=== PATIENT | male | born 1970 | race Caucasian/White ===

== ENCOUNTER 2018-02-10 16:14 | Outpatient (CLI) | payer OTHER ==
[~2018-02-10 16:14] MED LIST: ALBU8.5H8 INH; BACL10TA PO; CHOL2000 PO; CLON0.5T12 PO; DEXL60CA4 PO; DIAZ10TA4 PO; DULO60CA41 PO; ELVI1TAB PO; EPIN5DRO10 OP; EZET10TA PO; FLUT16SP16 NS; GLIP-204 PO; INSU100V9 SUBCUT; INSU200I SQ; IPRA3AMP9 INH; LIPA1CAP23 PO; LOP600 PO; LORA10TA7 PO; MOB7.5 PO; MONT10TA25 PO; NEU300 PO; NYSCR30 TP; OMEG1CAP55 PO; OMEP40CA33 PO; PANT20TA3 PO; PHEL5 PO; ROBDM PO; ROSU40TA PO; SUCR1TAB78 PO; TRAM50TA92 PO
== END 2018-02-10 20:52 | disposition home or self-care (01) ==
LOC: SRD 16:14
PROVIDERS: ATTEND Internal Medicine
DX: J18.9 Pneumonia, unspecified organism (principal); R05 Cough; Z88.1 Allergy status to other antibiotic agents; Z88.8 Allergy status to other drugs, medicaments and biological substances
CPT/HCPCS: 71045

== ENCOUNTER 2019-08-13 04:56 | Inpatient (IN) | payer OTHER ==
[~2019-08-13] VITALS: Ht 160 cm; Wt 76.7 kg
[2019-08-13 05:05] VITALS: BP_SYST 110
[2019-08-13] MEDS ORDERED: NITROGLYCERIN LINGUAL 400 mCg/SPRAY SL STA (05:18)
[2019-08-13] MEDS ORDERED: ASPIRIN 81 MG TAB.CHEW PO ONE (05:30)
[2019-08-13] MEDS ORDERED: NITROGLYCERIN LINGUAL 400 mCg/SPRAY ONE (05:58)
[2019-08-13] MEDS ORDERED: ASPI-1153 PO (06:15)
[2019-08-13] MEDS ORDERED: BENZ-16 PO (06:16)
[2019-08-13] MEDS ORDERED: GLIP10TA21 PO (06:18)
[2019-08-13] MEDS ORDERED: ROSU20TA2 PO (06:20)
[2019-08-13] MEDS ORDERED: SUCR1TAB78 PO (06:21)
[2019-08-13] MEDS ORDERED: ELVI1TAB PO (06:21)
[2019-08-13] MEDS ORDERED: SULF1TAB48 PO (06:23)
[2019-08-13] MEDS ORDERED: ICOS1CAP PO (06:24)
[2019-08-13] MEDS ORDERED: BUDE6.9H INH (06:24)
[2019-08-13] MEDS ORDERED: HYDR-4274 PO (06:26)
[2019-08-13] MEDS ORDERED: MORP30TA PO (06:27)
[2019-08-13] MEDS ORDERED: TIZA4TAB11 PO (06:28)
[2019-08-13] MEDS ORDERED: NITROGLYCERIN 1 INCH (GM) OINT. TP ONE (06:30)
[2019-08-13] MEDS ORDERED: SSNOVOLOG SUBCUT (06:30)
[2019-08-13] MEDS ORDERED: INSU300I3 SQ (06:31)
[2019-08-13] MEDS ORDERED: AZEL6DRO5 EACH EYE (06:32)
[2019-08-13] MEDS ORDERED: FLUT50BL IH (06:33)
[2019-08-13 06:34] LABS: BASOPHILS # (AUTO) 0.1 K/uL (0.0-0.2); BASOPHILS % (AUTO) 0.8 % (0.0-2.0); EOSINOPHILS # (AUTO) 0.2 K/uL (0.0-0.4); HEMATOCRIT 43.4 % (36-54); LYMPHOCYTES # (AUTO) 1.3 K/uL (1.0-5.5); LYMPHOCYTES % (AUTO) 15.9 % (20.5-51.5); MEAN CORPUSCULAR HEMOGLOBIN 33 pg (27-31); MEAN CORPUSCULAR HGB CONC 35 % (32-36); MEAN CORPUSCULAR VOLUME 94 fL (79.0-98.0); MONOCYTES # (AUTO) 0.6 K/uL (0.0-1.0); MONOCYTES % (AUTO) 7.4 % (1.7-9.3); NEUTROPHILS # (AUTO) 5.9 K/uL (1.8-7.7); NEUTROPHILS % (AUTO) 72.9 % (40.0-70.0); PLATELET COUNT (AUTO) 343 K/uL (130-430); RED CELL DISTRIBUTION WIDTH 12.3 % (9.0-15.0); WHITE BLOOD COUNT (AUTO) 8.1 K/uL (4.8-10.8)
[2019-08-13] MEDS ORDERED: HYDR-500 PO (06:34)
[2019-08-13] MEDS ORDERED: IBUP-1970 PO (06:35)
[2019-08-13] MEDS ORDERED: ALBU8.5H8 INH (06:37)
[2019-08-13] MEDS ORDERED: ASCO500T20 PO (06:38)
[2019-08-13] MEDS ORDERED: MELA3CAP2 PO (06:39)
[2019-08-13 06:40] LABS: CALCIUM 9.1 mg/dL (8.4-11.0); CREATININE 0.98 mg/dL (0.55-1.30); POTASSIUM 3.3 mmol/L (3.5-5.1)
[2019-08-13] MEDS ORDERED: MV-M1TAB19 PO (06:44)
[2019-08-13 06:45] LABS: TOTAL BILIRUBIN 0.6 mg/dL (0.0-1.0)
[2019-08-13 06:46] LABS: PROTHROMBIN TIME 9.9 SECS (9.5-12.5)
[2019-08-13] MEDS ORDERED: MAGN250T27 PO (06:47)
[2019-08-13] MEDS ORDERED: AMOX-423 PO (06:52)
[2019-08-13] MEDS ORDERED: DIF100 PO (06:53)
[2019-08-13] MEDS ORDERED: GLU500 PO (06:54)
[2019-08-13] MEDS ORDERED: METO25TA6 PO (06:54)
[2019-08-13] MEDS ORDERED: HYDR28.316 TP (06:56)
[2019-08-13] MEDS ORDERED: CYAN-25 PO (06:58)
[2019-08-13] MEDS ORDERED: POTASSIUM CHLORIDE 20 MEQ TAB.PRT.SR PO ONE ×2 (07:15→13:15)
[2019-08-13] MEDS ORDERED: AMOXICILLIN/CLAVULANATE POTASSIUM 500 MG TABLET PO ONE (10:30)
[2019-08-13] MEDS ORDERED: NAPHAZOLINE HCL/PHENIRAMINE 15 ML OPHT. DROPS OP PRN (10:30)
[2019-08-13] MEDS ORDERED: IBUPROFEN 800 MG TABLET PO PRN (10:30)
[2019-08-13] MEDS ORDERED: ASPIRIN 81 MG TABLET(ECOTRIN) PO ONE (10:30)
[2019-08-13] MEDS ORDERED: HYDROcodone/ACETAMIN 10-325 MG TAB PO PRN (10:30)
[2019-08-13] MEDS ORDERED: BACLOFEN 10 MG TABLET PO PRN ×2 (10:30→15:40)
[2019-08-13] MEDS ORDERED: IPRATROPIUM/ALBUTEROL SULFATE 3 ML AMPUL.NEB (DUONEB) INH PRN (10:30)
[2019-08-13 11:55] VITALS: BP_SYST 150
[2019-08-13] MEDS: INSULIN LISPRO SLIDING SCALE 100 UNITS/ML VIAL (humaLOG) SUBCUT PRN ×2 (12:07→17:24)
[2019-08-13] MEDS: MORPHINE SULFATE 30 MG Immediate Release TABLET PO SCH ×3 (12:21→21:44)
[2019-08-13 12:40] VITALS: BP_SYST 130
[2019-08-13] MEDS: SUCRALFATE 1 GM TABLET PO SCH ×2 (15:26→21:40)
[2019-08-13] MEDS: tiZANidine HCL 4 MG TABLET PO SCH ×2 (15:27→21:45)
[2019-08-13] MEDS: GABAPENTIN 300 MG CAPSULE PO SCH ×2 (15:27→21:45)
[2019-08-13] MEDS: clonazePAM 0.5 MG TABLET PO SCH ×2 (15:27→21:42)
[2019-08-13] MEDS: metFORMIN HCL 500 MG TABLET PO SCH ×2 (15:28→21:00)
[2019-08-13 16:00] VITALS: BP_SYST 158
[2019-08-13] MEDS: MELOXICAM 7.5 MG TABLET PO SCH (17:31)
[2019-08-13] MEDS: MELATONIN 3 MG TABLET PO SCH (17:32)
[2019-08-13 20:00] VITALS: BP_SYST 145
[2019-08-13] MEDS ORDERED: METOPROLOL TARTRATE 25 MG TABLET PO SCH (21:00)
[2019-08-13] MEDS: HYDROCORTISONE 2.5%, 30 GM TOPICAL CREAM TP SCH (21:00)
[2019-08-13] MEDS: AMOXICILLIN/CLAVULANATE POTASSIUM 500 MG TABLET PO SCH (21:40)
[2019-08-13] MEDS: OMEGA-3/DHA/EPA/FISH OIL 1 GM CAPSULE PO SCH (21:41)
[2019-08-13] MEDS: DULoxetine HCL 30 MG CAPSULE.DR (CYMBALTA) PO SCH (21:41)
[2019-08-13] MEDS: glipiZIDE XL 5 MG TAB ( GLUCOTROL XL) PO SCH (21:42)
[2019-08-13] MEDS: METOPROLOL TARTRATE 25 MG TABLET PO SCH (21:43)
[2019-08-13] MEDS: BENZONATATE 100 MG CAPSULE (TESSALON) PO SCH (21:45)
[2019-08-14] VITALS: BP_SYST 139
[2019-08-14 06:56] LABS: BASOPHILS # (AUTO) 0.1 K/uL (0.0-0.2); EOSINOPHILS # (AUTO) 0.2 K/uL (0.0-0.4); EOSINOPHILS % (AUTO) 3.6 % (0.0-4.0); HEMATOCRIT 46.7 % (36-54); HEMOGLOBIN 15.9 g/dL (14.0-18.0); LYMPHOCYTES # (AUTO) 1.4 K/uL (1.0-5.5); LYMPHOCYTES % (AUTO) 20.4 % (20.5-51.5); MEAN CORPUSCULAR HEMOGLOBIN 32 pg (27-31); MEAN CORPUSCULAR HGB CONC 34 % (32-36); MEAN CORPUSCULAR VOLUME 95 fL (79.0-98.0); MONOCYTES # (AUTO) 0.8 K/uL (0.0-1.0); MONOCYTES % (AUTO) 11.2 % (1.7-9.3); NEUTROPHILS # (AUTO) 4.4 K/uL (1.8-7.7); NEUTROPHILS % (AUTO) 63.8 % (40.0-70.0); PLATELET COUNT (AUTO) 329 K/uL (130-430); RED BLOOD CELL COUNT(AUTO) 4.92 MIL/uL (4.2-6.2); RED CELL DISTRIBUTION WIDTH 12.1 % (9.0-15.0)
[2019-08-14 07:33] LABS: ALBUMIN 3.6 g/dL (3.4-4.8); CALCIUM 9.3 mg/dL (8.4-11.0); CREATININE 1.26 mg/dL (0.55-1.30); POTASSIUM 3.4 mmol/L (3.5-5.1); THYROID STIMULATING HORMONE 2.04 uIu/mL (0.36-3.74); TOTAL BILIRUBIN 0.4 mg/dL (0.0-1.0)
[2019-08-14 07:57] VITALS: BP_SYST 140
[2019-08-14] MEDS: tiZANidine HCL 4 MG TABLET PO SCH ×3 (08:26→21:56)
[2019-08-14] MEDS: BENZONATATE 100 MG CAPSULE (TESSALON) PO SCH ×2 (08:26→21:56)
[2019-08-14] MEDS: MAGNESIUM OXIDE 400 MG TABLET PO SCH (08:26)
[2019-08-14] MEDS: METOPROLOL TARTRATE 25 MG TABLET PO SCH ×2 (08:26→21:55)
[2019-08-14] MEDS: LORATADINE 10 MG TABLET PO SCH (08:27)
[2019-08-14] MEDS: GABAPENTIN 300 MG CAPSULE PO SCH ×3 (08:27→21:56)
[2019-08-14] MEDS: PANTOPRAZOLE SODIUM 40 MG TAB PO SCH (08:28)
[2019-08-14] MEDS: clonazePAM 0.5 MG TABLET PO SCH ×3 (08:28→21:54)
[2019-08-14] MEDS: SUCRALFATE 1 GM TABLET PO SCH ×3 (08:28→21:53)
[2019-08-14] MEDS: metFORMIN HCL 500 MG TABLET PO SCH ×3 (08:29→21:54)
[2019-08-14] MEDS: CYANOCOBALAMIN 1000 mCg TABLET PO SCH (08:29)
[2019-08-14] MEDS: ASCORBIC ACID 500 MG TABLET PO SCH (08:30)
[2019-08-14] MEDS: MONTELUKAST 10 MG TABLET PO SCH (08:30)
[2019-08-14] MEDS: MORPHINE SULFATE 30 MG Immediate Release TABLET PO SCH ×5 (08:30→21:57)
[2019-08-14] MEDS: DULoxetine HCL 30 MG CAPSULE.DR (CYMBALTA) PO SCH ×2 (08:31→21:53)
[2019-08-14] MEDS: ATORVASTATIN 20 MG TABLET PO SCH (08:31)
[2019-08-14] MEDS ORDERED: [UNRECOGNIZED DRUG - OTHER] PO SCH (09:00)
[2019-08-14] MEDS ORDERED: HERBAL CMPLX PO SCH (09:00)
[2019-08-14] MEDS ORDERED: SULFAMETHOXAZOLE/TRIMETHOPR DS 1 TABLET PO SCH (09:00)
[2019-08-14] MEDS: OMEGA-3/DHA/EPA/FISH OIL 1 GM CAPSULE PO SCH ×2 (09:00→21:54)
[2019-08-14] MEDS ORDERED: IRON PO SCH (09:00)
[2019-08-14] MEDS ORDERED: INSULIN GLARGINE 100 UNITS/ML 10 ML VIAL SQ SCH ×3 (09:00→17:45)
[2019-08-14] MEDS ORDERED: FLUCONAZOLE 100 MG TABLET (DIFLUCAN) PO SCH (09:00)
[2019-08-14] MEDS ORDERED: MV MN PO SCH (09:00)
[2019-08-14] MEDS: HYDROCORTISONE 2.5%, 30 GM TOPICAL CREAM TP SCH ×2 (09:00→21:56)
[2019-08-14] MEDS: AMOXICILLIN/CLAVULANATE POTASSIUM 500 MG TABLET PO SCH ×2 (09:36→21:53)
[2019-08-14] MEDS: ASPIRIN 81 MG TABLET(ECOTRIN) PO SCH (09:37)
[2019-08-14] MEDS: GEMFIBROZIL 600 MG TABLET (LOPID) PO SCH (09:37)
[2019-08-14] MEDS: MELOXICAM 7.5 MG TABLET PO SCH ×2 (09:37→17:29)
[2019-08-14] MEDS: glipiZIDE XL 5 MG TAB ( GLUCOTROL XL) PO SCH ×2 (09:38→21:54)
[2019-08-14] MEDS: INSULIN LISPRO SLIDING SCALE 100 UNITS/ML VIAL (humaLOG) SUBCUT PRN ×3 (12:09→21:59)
[2019-08-14 12:22] VITALS: BP_SYST 127
[2019-08-14 16:54] VITALS: BP_SYST 142
[2019-08-14] MEDS: MELATONIN 3 MG TABLET PO SCH (17:29)
[2019-08-14 20:00] VITALS: BP_SYST 128
[2019-08-14] MEDS: ARIPiprazole 5 MG TAB PO SCH (21:53)
[2019-08-14] MEDS ORDERED: GABAPENTIN 300 MG CAPSULE ONE (21:58)
[2019-08-15 00:17] VITALS: BP_SYST 136
[2019-08-15] MEDS: INSULIN LISPRO SLIDING SCALE 100 UNITS/ML VIAL (humaLOG) SUBCUT PRN ×4 (06:02→20:28)
[2019-08-15 07:03] LABS: CHOLESTEROL 195 mg/dL (<200); HDL CHOLESTEROL 34 mg/dL (>45); LDL CHOLESTEROL 100 mg/dL (<100); TRIGLYCERIDES 455 mg/dL (30-150)
[2019-08-15] MEDS: HYDROCORTISONE 2.5%, 30 GM TOPICAL CREAM TP SCH ×2 (09:00→20:26)
[2019-08-15] MEDS: BUDESONIDE 0.5 MG/2 ML AMPUL.NEB INH SCH ×2 (09:00→20:16)
[2019-08-15] MEDS: tiZANidine HCL 4 MG TABLET PO SCH ×3 (09:08→20:25)
[2019-08-15] MEDS: MONTELUKAST 10 MG TABLET PO SCH (09:08)
[2019-08-15] MEDS: MAGNESIUM OXIDE 400 MG TABLET PO SCH (09:08)
[2019-08-15] MEDS: ASCORBIC ACID 500 MG TABLET PO SCH (09:08)
[2019-08-15] MEDS: SUCRALFATE 1 GM TABLET PO SCH ×3 (09:08→20:23)
[2019-08-15] MEDS: ATORVASTATIN 20 MG TABLET PO SCH (09:08)
[2019-08-15] MEDS: ASPIRIN 81 MG TABLET(ECOTRIN) PO SCH (09:09)
[2019-08-15] MEDS: OMEGA-3/DHA/EPA/FISH OIL 1 GM CAPSULE PO SCH ×2 (09:09→20:22)
[2019-08-15] MEDS: PANTOPRAZOLE SODIUM 40 MG TAB PO SCH (09:09)
[2019-08-15] MEDS: BENZONATATE 100 MG CAPSULE (TESSALON) PO SCH ×2 (09:09→20:25)
[2019-08-15] MEDS: LORATADINE 10 MG TABLET PO SCH (09:09)
[2019-08-15] MEDS: DULoxetine HCL 30 MG CAPSULE.DR (CYMBALTA) PO SCH ×2 (09:09→20:22)
[2019-08-15] MEDS: clonazePAM 0.5 MG TABLET PO SCH ×3 (09:11→20:25)
[2019-08-15] MEDS: CYANOCOBALAMIN 1000 mCg TABLET PO SCH (09:11)
[2019-08-15] MEDS: metFORMIN HCL 500 MG TABLET PO SCH ×3 (09:11→20:24)
[2019-08-15] MEDS: METOPROLOL TARTRATE 25 MG TABLET PO SCH ×2 (09:13→20:23)
[2019-08-15] MEDS: AMOXICILLIN/CLAVULANATE POTASSIUM 500 MG TABLET PO SCH ×2 (09:24→20:22)
[2019-08-15] MEDS: GEMFIBROZIL 600 MG TABLET (LOPID) PO SCH (09:24)
[2019-08-15] MEDS: glipiZIDE XL 5 MG TAB ( GLUCOTROL XL) PO SCH ×2 (09:24→20:21)
[2019-08-15] MEDS: GABAPENTIN 300 MG CAPSULE PO SCH ×3 (09:24→20:22)
[2019-08-15] MEDS: MELOXICAM 7.5 MG TABLET PO SCH ×2 (09:25→19:27)
[2019-08-15] MEDS ORDERED: MORPHINE SULFATE 30 MG Immediate Release TABLET PO ONE (09:45)
[2019-08-15] MEDS ORDERED: DEXTROSE 50%-WATER 50 ML DISP.SYRIN IVP PRN (11:30)
[2019-08-15] MEDS ORDERED: GLUCOSE 15 GM GEL (in 37.5 GM TUBE) PO PRN (11:30)
[2019-08-15] MEDS ORDERED: D5W 1,000 ML IV PRN (11:30)
[2019-08-15 12:09] VITALS: BP_SYST 110
[2019-08-15] MEDS: MORPHINE SULFATE 30 MG Immediate Release TABLET PO SCH ×3 (13:17→20:24)
[2019-08-15 16:15] VITALS: BP_SYST 121
[2019-08-15] MEDS: MELATONIN 3 MG TABLET PO SCH (19:27)
[2019-08-15 20:00] VITALS: BP_SYST 128
[2019-08-15] MEDS: ARIPiprazole 5 MG TAB PO SCH (20:25)
[2019-08-15] MEDS: INSULIN GLARGINE 100 UNITS/ML 10 ML VIAL SQ SCH (20:28)
[2019-08-16] VITALS (7 sets, daily range): BP systolic 119–128
[2019-08-16] MEDS: INSULIN LISPRO SLIDING SCALE 100 UNITS/ML VIAL (humaLOG) SUBCUT PRN ×3 (06:16→21:15)
[2019-08-16 06:45] LABS: CREATININE 1.55 mg/dL (0.55-1.30); POTASSIUM 3.3 mmol/L (3.5-5.1)
[2019-08-16] MEDS: BUDESONIDE 0.5 MG/2 ML AMPUL.NEB INH SCH ×2 (07:41→20:55)
[2019-08-16] MEDS: DULoxetine HCL 30 MG CAPSULE.DR (CYMBALTA) PO SCH ×2 (09:12→21:08)
[2019-08-16] MEDS: MELOXICAM 7.5 MG TABLET PO SCH (09:12)
[2019-08-16] MEDS: AMOXICILLIN/CLAVULANATE POTASSIUM 500 MG TABLET PO SCH ×2 (09:12→21:07)
[2019-08-16] MEDS: glipiZIDE XL 5 MG TAB ( GLUCOTROL XL) PO SCH ×2 (09:12→21:08)
[2019-08-16] MEDS: MORPHINE SULFATE 30 MG Immediate Release TABLET PO SCH ×2 (09:13→12:33)
[2019-08-16] MEDS: OMEGA-3/DHA/EPA/FISH OIL 1 GM CAPSULE PO SCH (09:13)
[2019-08-16] MEDS: LORATADINE 10 MG TABLET PO SCH (09:13)
[2019-08-16] MEDS: SUCRALFATE 1 GM TABLET PO SCH (09:13)
[2019-08-16] MEDS: GEMFIBROZIL 600 MG TABLET (LOPID) PO SCH (09:13)
[2019-08-16] MEDS: clonazePAM 0.5 MG TABLET PO SCH ×2 (09:14→15:37)
[2019-08-16] MEDS: PANTOPRAZOLE SODIUM 40 MG TAB PO SCH (09:14)
[2019-08-16] MEDS: ASCORBIC ACID 500 MG TABLET PO SCH (09:14)
[2019-08-16] MEDS: GABAPENTIN 300 MG CAPSULE PO SCH ×3 (09:14→21:09)
[2019-08-16] MEDS: ATORVASTATIN 20 MG TABLET PO SCH (09:15)
[2019-08-16] MEDS: tiZANidine HCL 4 MG TABLET PO SCH ×3 (09:15→21:09)
[2019-08-16] MEDS: CYANOCOBALAMIN 1000 mCg TABLET PO SCH (09:15)
[2019-08-16] MEDS: MONTELUKAST 10 MG TABLET PO SCH (09:15)
[2019-08-16] MEDS: MAGNESIUM OXIDE 400 MG TABLET PO SCH (09:15)
[2019-08-16] MEDS: ASPIRIN 81 MG TABLET(ECOTRIN) PO SCH (09:16)
[2019-08-16] MEDS: metFORMIN HCL 500 MG TABLET PO SCH (09:16)
[2019-08-16] MEDS: BENZONATATE 100 MG CAPSULE (TESSALON) PO SCH ×2 (09:16→21:09)
[2019-08-16] MEDS: METOPROLOL TARTRATE 25 MG TABLET PO SCH ×2 (09:17→21:08)
[2019-08-16] MEDS: HYDROCORTISONE 2.5%, 30 GM TOPICAL CREAM TP SCH ×2 (09:17→21:10)
[2019-08-16] MEDS: INSULIN GLARGINE 100 UNITS/ML 10 ML VIAL SQ SCH ×2 (09:22→21:12)
[2019-08-16] MEDS ORDERED: clonazePAM 0.5 MG TABLET PO PRN (16:00)
[2019-08-16] MEDS ORDERED: MORPHINE SULFATE 30 MG Immediate Release TABLET PO PRN (16:00)
[2019-08-16] MEDS ORDERED: POTASSIUM CHLORIDE 20 MEQ TAB.PRT.SR PO ONE (16:15)
[2019-08-16] MEDS ORDERED: TAMSULOSIN HCL 0.4 MG CAP PO ONE (16:15)
[2019-08-16] MEDS: ARIPiprazole 5 MG TAB PO SCH (21:07)
[2019-08-16] MEDS: MORPHINE SULFATE 30 MG Immediate Release TABLET PO PRN (21:26)
[2019-08-17 01:02] VITALS: BP_SYST 120
[2019-08-17] MEDS: INSULIN LISPRO SLIDING SCALE 100 UNITS/ML VIAL (humaLOG) SUBCUT PRN ×2 (06:53→11:40)
[2019-08-17 08:00] VITALS: BP_SYST 127
[2019-08-17] MEDS: ASCORBIC ACID 500 MG TABLET PO SCH (08:55)
[2019-08-17] MEDS: METOPROLOL TARTRATE 25 MG TABLET PO SCH (08:56)
[2019-08-17] MEDS: DULoxetine HCL 30 MG CAPSULE.DR (CYMBALTA) PO SCH (08:56)
[2019-08-17] MEDS: MAGNESIUM OXIDE 400 MG TABLET PO SCH (08:56)
[2019-08-17] MEDS: ATORVASTATIN 20 MG TABLET PO SCH (08:56)
[2019-08-17] MEDS: CYANOCOBALAMIN 1000 mCg TABLET PO SCH (08:57)
[2019-08-17] MEDS: PANTOPRAZOLE SODIUM 40 MG TAB PO SCH (08:57)
[2019-08-17] MEDS: ASPIRIN 81 MG TABLET(ECOTRIN) PO SCH (08:57)
[2019-08-17] MEDS: BENZONATATE 100 MG CAPSULE (TESSALON) PO SCH (08:57)
[2019-08-17] MEDS: tiZANidine HCL 4 MG TABLET PO SCH ×2 (08:57→14:43)
[2019-08-17] MEDS: GABAPENTIN 300 MG CAPSULE PO SCH ×2 (08:57→14:43)
[2019-08-17] MEDS ORDERED: TAMSULOSIN HCL 0.4 MG CAP PO SCH (09:00)
[2019-08-17] MEDS: BUDESONIDE 0.5 MG/2 ML AMPUL.NEB INH SCH (09:00)
[2019-08-17] MEDS: glipiZIDE XL 5 MG TAB ( GLUCOTROL XL) PO SCH (09:06)
[2019-08-17] MEDS: AMOXICILLIN/CLAVULANATE POTASSIUM 500 MG TABLET PO SCH (09:06)
[2019-08-17] MEDS: GEMFIBROZIL 600 MG TABLET (LOPID) PO SCH (09:06)
[2019-08-17] MEDS: HYDROCORTISONE 2.5%, 30 GM TOPICAL CREAM TP SCH (09:07)
[2019-08-17] MEDS: INSULIN GLARGINE 100 UNITS/ML 10 ML VIAL SQ SCH (09:10)
[2019-08-17] MEDS: MORPHINE SULFATE 30 MG Immediate Release TABLET PO PRN (09:13)
[2019-08-17 12:29] VITALS: BP_SYST 131
[2019-08-17 14:28] VITALS: BP_SYST 125
[2019-08-17] MEDS ORDERED: NAPHAZOLINE HCL/PHENIRAMINE 15 ML OPHT. DROPS OP ONE (15:14)
[2019-08-18] MEDS ORDERED: [UNRECOGNIZED DRUG - OTHER] PO SCH (09:00)
== END 2019-08-17 15:15 | disposition home or self-care (01) | DRG 313 ==
LOC: SED 04:56 → STU 08:02 → SMU 08-14 23:12
PROVIDERS: ADMIT Internal Medicine; ATTEND Internal Medicine
DX: R07.89 Other chest pain (principal); R00.0 Tachycardia, unspecified; F45.8 Other somatoform disorders; E11.43 Type 2 diabetes mellitus with diabetic autonomic (poly)neuropathy; E11.65 Type 2 diabetes mellitus with hyperglycemia; G89.4 Chronic pain syndrome; E66.9 Obesity, unspecified; E78.5 Hyperlipidemia, unspecified; F41.9 Anxiety disorder, unspecified; Z96.642 Presence of left artificial hip joint; F31.9 Bipolar disorder, unspecified; J32.9 Chronic sinusitis, unspecified; N18.3 Chronic kidney disease, stage 3 (moderate); I12.9 Hypertensive chronic kidney disease with stage 1 through stage 4 chronic kidney disease, or unspecified chronic kidney disease; G62.9 Polyneuropathy, unspecified; J45.909 Unspecified asthma, uncomplicated; F29 Unspecified psychosis not due to a substance or known physiological condition; Z79.4 Long term (current) use of insulin; Z89.611 Acquired absence of right leg above knee; Z99.3 Dependence on wheelchair; Z79.899 Other long term (current) drug therapy; Z68.29 Body mass index [BMI] 29.0-29.9, adult; Z88.1 Allergy status to other antibiotic agents; Z88.5 Allergy status to narcotic agent; Z88.8 Allergy status to other drugs, medicaments and biological substances; Z79.82 Long term (current) use of aspirin; Z79.84 Long term (current) use of oral hypoglycemic drugs; Z21 Asymptomatic human immunodeficiency virus [HIV] infection status
CPT/HCPCS: 36415; 71045; 76770; 80048; 80053; 80061; 82962; 83036; 83735-TC; 83880; 84443-TC; 84484; 85025; 85610-TC; 85730-TC; 93005; 94640; 94760; 99285; G0378; J1815; J2274; J7626